=== PATIENT | male | born 1945 | race Caucasian/White ===

== ENCOUNTER 2017-10-31 03:55 | Emergency (ER) | payer MEDICARE, MEDICAID ==
[2017-10-31 03:55] VITALS: BMI 32.2
[2017-10-31 04:36] VITALS: RESP 18; O2SAT 97
[2017-10-31] MEDS ORDERED: Sodium Chloride 0.9% 1,000 ML IV SCH (05:00)
--- NOTE | 2017-10-31 05:21 | ED PDOC ---
Arrival/HPI - General Chief Complaint: Flu-like Symptoms Time Seen by Provider: 10/31/17 04:53 Historian: Patient, Family - History of Present Illness Narrative History of Present Illness (Text): 10/31/17 05:11 72 year male, whose past medical history includes hypertension and diabetes, presents to the emergency department complaining of flu-like symptoms including fever, cough, ear pain, and sore throat that began 4 days ago. As per son, patient was seen by PMD 2 days ago given medication and no relief. Patient denies any chills, chest pain, shortness of breath, nausea, vomiting, diarrhea, urinary symptoms, back pain, neck pain, headache, dizziness, or any other complaints. PMD: Dr. Arellano Time/Duration: Other (4 days) Symptom Onset: Gradual Symptom Course: Unchanged Activities at Onset: Light Context: Home Past Medical History - Provider Review Nursing Documentation Reviewed: Yes - Infectious Disease Hx of Infectious Diseases: None - Tetanus Immunization Tetanus Immunization: Unknown - Cardiac Hx Pacemaker: No - Pulmonary Hx Respiratory Disorders: No - Neurological Hx Paralysis: No - HEENT Hx Cataracts: Yes (Cataract sx) - Renal Hx Renal Disorder: No - Endocrine/Metabolic Hx Diabetes Mellitus Type 2: Yes - Hematological/Oncological Hx Blood Transfusions: No Hx Blood Transfusion Reaction: No - Integumentary Hx Dermatological Disorder: No - Musculoskeletal/Rheumatological Hx Musculoskeletal Disorders: No - Gastrointestinal Hx Gastrointestinal Disorders: No - Genitourinary/Gynecological Hx Genitourinary Disorders: No - Psychiatric Hx Emotional Abuse: No Hx Physical Abuse: No Hx Substance Use: No - Past Surgical History Past Surgical History: Non-Contributing - Anesthesia Hx Anesthesia Reactions: No Hx Malignant Hyperthermia: No - Suicidal Assessment Feels Threatened In Home Enviroment: No Family/Social History - Physician Review Nursing Documentation Reviewed: Yes Family/Social History: No Known Family HX Smoking Status: Never Smoked Hx Alcohol Use: No Hx Substance Use: No Hx Substance Use Treatment: No Allergies/Home Meds Allergies/Adverse Reactions: Allergies No Known Allergies Allergy (Verified 11/05/15 12:44) Home Medications: Home Meds Medication Instructions Recorded Confirmed Enalapril Maleate 10 mg PO DAILY 08/29/14 10/31/17 Lovastatin 40 mg PO QPM 08/29/14 10/31/17 Metformin HCl 1,000 mg PO BID 08/29/14 10/31/17 Linagliptin [Tradjenta] 5 mg PO QAM 11/05/15 10/31/17 Tamsulosin [Flomax] 0.4 mg PO QPM 11/05/15 10/31/17 Metoprolol Succinate XL 25 mg PO DAILY 11/06/15 10/31/17 Review of Systems - Physician Review All systems were reviewed & negative as marked: Yes - Review of Systems Constitutional: Fevers. absent: Other (Chills) ENT: Sore Throat, Other (ear pain) Respiratory: Cough. absent: SOB Cardiovascular: absent: Chest Pain Gastrointestinal: absent: Diarrhea, Nausea, Vomiting Genitourinary Male: absent: Dysuria, Frequency, Hematuria Musculoskeletal: absent: Back Pain, Neck Pain Neurological: absent: Headache, Dizziness Physical Exam Vital Signs Reviewed: Yes Vital Signs Temp Pulse Resp BP Pulse Ox 10/31/17 06:09 99.9 F H 75 18 124/64 97 10/31/17 05:23 101.8 F H 10/31/17 04:35 101.8 F H 77 18 123/69 97 Temperature: Febrile Blood Pressure: Normal Pulse: Regular Respiratory Rate: Normal Appearance: Positive for: Well-Appearing, Non-Toxic, Comfortable Pain Distress: None Mental Status: Positive for: Alert and Oriented X 3 - Systems Exam Head: Present: Atraumatic, Normocephalic Pupils: Present: PERRL Extroacular Muscles: Present: EOMI Conjunctiva: Present: Normal Ears: Present: NORMAL TM Mouth: Present: Moist Mucous Membranes Pharnyx: Present: ERYTHEMA. No: EXUDATE, TONSILS ENLARGED, Peritonsilar Swelling, Uvular Deviation, Muffled/Hoarse Voice Neck: Present: Normal Range of Motion, Other. No: Meningeal Signs (Neck Supple) Respiratory/Chest: Present: Clear to Auscultation, Good Air Exchange. No: Respiratory Distress, Accessory Muscle Use Cardiovascular: Present: Regular Rate and Rhythm, Normal S1, S2. No: Murmurs Abdomen: Present: Normal Bowel Sounds. No: Tenderness, Distention, Peritoneal Signs Back: Present: Normal Inspection Upper Extremity: Present: Normal Inspection. No: Cyanosis, Edema Lower Extremity: Present: Normal Inspection. No: Edema Neurological: Present: GCS=15, CN II-XII Intact, Speech Normal. No: Other (No focal neurological deficits) Skin: Present: Warm, Dry, Normal Color. No: Rashes Psychiatric: Present: Alert, Oriented x 3, Normal Insight, Normal Concentration Medical Decision Making ED Course and Treatment: 10/31/17 05:12 Impression: 72 year old male presents complaining of flu-like symptoms including cough, fever, ear pain, and sore throat that began 4 days ago. Plan: -- VBG -- Labs -- IV Fluids, Tylenol -- Urine Culture, Blood Culture -- Urinalysis -- Reassess and disposition Progress Notes: 10/31/17 05:55 Patient Labs shows Influenza B positive. CXR Impression: As read by me, no acute processes. 10/31/17 06:15 Patient states he feels fine and that he prefers medication and to be released to go home. Patient's family is present and prefer patient goes home as well. Patient will be discharged on medication prescribed. Patient in agreement with plan to be discharged home. Patient is stable for discharge. Patient was instructed to follow up with physician or return if symptoms worsen or new concerning symptoms arise. - Lab Interpretations Lab Results: 10/31/17 05:00 10/31/17 05:00 Lab Results 10/31/17 05:10: Influenza Typ A,B (EIA) Pos for influenza b H 10/31/17 05:00: pO2 26 L, VBG pH 7.41, VBG pCO2 48.0, VBG HCO3 30.4 H, VBG Total CO2 31.9 H, VBG O2 Sat (Calc) 59.3, VBG Base Excess 4.8 H, VBG Potassium 4.4, Sodium 135.0, Chloride 100.0, Glucose 252 H, Lactate 1.1, FiO2 21.0, Venous Blood Potassium 4.4 10/31/17 05:00: WBC 8.3 D, RBC 4.79, Hgb 14.4, Hct 42.6, MCV 88.9, MCH 30.1, MCHC 33.8, RDW 13.1, Plt Count 106 L, MPV 11.2 H 10/31/17 05:00: Sodium 139, Chloride 99, Potassium 4.3, Carbon Dioxide 27, Anion Gap 18, BUN 25 H, Creatinine 1.4, Est GFR ( Amer) > 60, Est GFR ( Non-Af Amer) 50, Random Glucose 238 H, Calcium 9.0, Total Bilirubin 0.7, AST 21 , ALT 29, Alkaline Phosphatase 38, Total Protein 7.7, Albumin 4.3, Globulin 3.4 , Albumin/Globulin Ratio 1.3 I have reviewed the lab results: Yes - RAD Interpretation Radiology Orders: 10/31/17 05:44 CHEST PORTABLE [RAD] Stat - Medication Orders Current Medication Orders: Sodium Chloride (Sodium Chloride 0.9%) 1,000 mls @ 100 mls/hr IV .Q10H SOCORRO Last Admin: 10/31/17 05:23 Dose: 100 mls/hr eMAR Start Stop Document 10/31/17 05:23 AD (Rec: 10/31/17 05:23 AD [id number]) Intravenous Solution Start Date 10/31/17 Start Time 05:23 Discontinued Medications Acetaminophen (Tylenol 325mg Tab) 650 mg PO STAT STA Stop: 10/31/17 04:56 Last Admin: 10/31/17 05:23 Dose: 650 mg MAR Pain/Vitals Document 10/31/17 05:23 AD (Rec: 10/31/17 05:23 AD [id number]) Location Pain Location Body Site Generalized Pain Behavior Facial Grimacing Vitals Temperature (97.6 F-99.6 F) 101.8 F Temperature Source Oral Oseltamivir Phosphate (Tamiflu Cap) 75 mg PO ONCE ONE PRN Reason: Protocol Stop: 10/31/17 06:02 Disposition/Present on Arrival - Present on Arrival Any Indicators Present on Arrival: No History of DVT/PE: No History of Uncontrolled Diabetes: Yes Urinary Catheter: No History of Decub. Ulcer: No History Surgical Site Infection Following: None - Disposition Have Diagnosis and Disposition been Completed?: Yes Diagnosis: Influenza, Pharyngitis Disposition: HOME/ ROUTINE Disposition Time: 06:11 Patient Plan: Discharge Patient Problems: Current Active Problems Problem Status Onset Influenza Acute Pharyngitis Acute Condition: GOOD Discharge Instructions (ExitCare): Flu, Adult (DC) Additional Instructions: Drink plenty of liquids/take meds as prescribed/follow up with your doctor this week/any worsening symptoms return to the emergency room Prescriptions: Oseltamivir [Tamiflu] 75 mg PO BID #10 cap Azithromycin [Z-Guido] 250 mg PO DAILY #6 tab Referrals: El Kent, [Primary Care Provider] - Follow up with primary Forms: [employer] (Welsh)
[2017-10-31 05:31] LABS: VENOUS BLOOD GAS BASE EXCESS 4.8 mmol/L (0.0-2.0); VENOUS BLOOD GAS PO2 26 mm/Hg (30-55); VENOUS BLOOD PH 7.41 (7.32-7.43)
[2017-10-31 05:32] LABS: HEMOGLOBIN 14.4 g/dL (14.0-18.0); MEAN CELL VOLUME 88.9 fl (80.0-105.0); MEAN CORPUSCULAR HEMOGLOBIN 30.1 pg (25.0-35.0); MEAN CORPUSCULAR HGB CONC 33.8 g/dl (31.0-37.0); MEAN PLATELET VOLUME 11.2 fl (7.0-11.0); RBC 4.79 10^6/uL (3.5-6.1); RED CELL DISTRIBUTION WIDTH 13.1 % (11.5-14.5); WHITE BLOOD COUNT 8.3 10^3/ul (4.5-11.0)
[2017-10-31 05:41] LABS: ALB/GLOB RATIO 1.3 (1.1-1.8); ALBUMIN 4.3 g/dL (3.0-4.8); ALT/SGPT 29 U/L (7-56); AST/SGOT 21 U/L (17-59); BLOOD UREA NITROGEN 25 mg/dL (7-21); GFR AFRICAN-AMERICAN > 60; GFR NON-AFRICAN AMERICAN 50
[2017-10-31 06:10] VITALS: BP 124/64; PULSE 75; TEMP 99.9
[2017-10-31 06:14] LABS: URINE BILIRUBIN NEGATIVE (NEGATIVE); URINE BLOOD SMALL (NEGATIVE); URINE GLUCOSE (UA) 100 mg/dL (NEGATIVE); URINE LEUKOCYTE ESTERASE NEGATIVE Leu/uL (NEGATIVE); URINE NITRATE NEGATIVE (NEGATIVE); URINE PROTEIN TRACE mg/dL (<30 mg/dL); URINE UROBILINOGEN 0.2 E.U./dL (<1 E.U./dL)
[2017-10-31 06:31] LABS: URINE COLOR YELLOW (YELLOW)
[2017-10-31 06:32] LABS: URINE APPEARANCE SL CLOUDY (CLEAR)
[2017-10-31 06:33] LABS: URINE EPITHELIAL CELLS 0 - 2 /hpf (0-5); URINE WBC 0 - 2 /hpf (0-6)
[2017-10-31 06:34] LABS: URINE BACTERIA FEW (NEG)
--- NOTE | 2017-10-31 09:56 | RAD ---
HISTORY: fever COMPARISON: Comparison chest 10/30/2013 FINDINGS: LUNGS: Mild bibasilar atelectasis or scarring PLEURA: No significant pleural effusion identified, no pneumothorax apparent. CARDIOVASCULAR: Cardiomegaly. Aorta is slightly ectatic and uncoiled. OSSEOUS STRUCTURES: Degenerative osteoarthritis right shoulder girdle VISUALIZED UPPER ABDOMEN: Normal. OTHER FINDINGS: None. IMPRESSION: Minor bibasilar atelectasis or scarring
== END 2017-10-31 06:25 | disposition home or self-care (01) ==
LOC: ED 03:55
DX: J11.1 Influenza due to unidentified influenza virus with other respiratory manifestations (principal); E11.9 Type 2 diabetes mellitus without complications
CPT/HCPCS: 71045; 80053; 81001; 82803; 85027; 87040; 87086; 87804; 99284; J7040

== ENCOUNTER 2018-10-10 10:31 | Emergency (ER) | payer MEDICARE, MEDICAID ==
[2018-10-10 10:32] VITALS: BMI 32.2
[2018-10-10 10:55] VITALS: RESP 18; TEMP 97.5
--- NOTE | 2018-10-10 11:20 | ED PDOC ---
Arrival/HPI - General Chief Complaint: Shortness Of Breath - History of Present Illness Narrative History of Present Illness (Text): 10/10/18 11:17 73 y/o M w/ h/o HTN, gastroparesis, HLD presenting to the Emergency Room with complaint of shortness of breath. The patient states he's been experiencing dyspnea and non-radiating midsternal chest tightness ongoing for the last 10 d ays. The patient denies any recent travel history, fevers, triggers or alleviators, but attributes his symptoms to a "blockage" in his heart. The patient denies taking any medication for his pain, but reports medication adherence. He denies seeing any other physicians for his symptoms, thinking it w ould resolve on their own. He denies taking any medication for his symptoms. Of note, the patient had an echo performed by Dr. Weathers(cardiology) on 07/21/2018 where LV function was patent, EF was intact and no wall motion abnormalities were detected at that time. PCP: Dr. Arellano Time/Duration: > week (1), 1 week (10 days) Symptom Onset: Gradual Symptom Course: Unchanged Quality: Tightness Severity Level: 6 Activities at Onset: Rest Context: Exertion, Home Past Medical History - Provider Review Nursing Documentation Reviewed: Yes - Travel History Have you recently traveled outside [place] w/in the past 3 mons?: No - Infectious Disease Hx of Infectious Diseases: None - Tetanus Immunization Tetanus Immunization: Unknown - Cardiac Hx Pacemaker: No - Pulmonary Hx Respiratory Disorders: No - Neurological Hx Paralysis: No - HEENT Hx Cataracts: Yes (Cataract sx) - Renal Hx Renal Disorder: No - Endocrine/Metabolic Hx Diabetes Mellitus Type 2: Yes - Hematological/Oncological Hx Blood Transfusions: No Hx Blood Transfusion Reaction: No - Integumentary Hx Dermatological Disorder: No - Musculoskeletal/Rheumatological Hx Musculoskeletal Disorders: No - Gastrointestinal Hx Gastrointestinal Disorders: No - Genitourinary/Gynecological Hx Genitourinary Disorders: No - Psychiatric Hx Emotional Abuse: No Hx Physical Abuse: No Hx Substance Use: No - Past Surgical History Past Surgical History: Non-Contributing - Anesthesia Hx Anesthesia: Yes Hx Anesthesia Reactions: No Hx Malignant Hyperthermia: No - Suicidal Assessment Feels Threatened In Home Enviroment: No Family/Social History - Physician Review Nursing Documentation Reviewed: Yes Family/Social History: Unknown Family HX Smoking Status: Never Smoked Hx Alcohol Use: No Hx Substance Use: No Hx Substance Use Treatment: No Allergies/Home Meds Allergies/Adverse Reactions: Allergies No Known Allergies Allergy (Verified 11/05/15 12:44) Home Medications: Home Meds Medication Instructions Recorded Confirmed RX: Enalapril Maleate 10 mg PO DAILY 08/29/14 10/31/17 RX: Lovastatin 40 mg PO QPM 08/29/14 10/31/17 RX: Metformin HCl 1,000 mg PO BID 08/29/14 10/31/17 Linagliptin [Tradjenta] 5 mg PO QAM 11/05/15 10/31/17 Tamsulosin [Flomax] 0.4 mg PO QPM 11/05/15 10/31/17 Metoprolol Succinate XL 25 mg PO DAILY 11/06/15 10/31/17 Review of Systems - Physician Review All systems were reviewed & negative as marked: Yes - Review of Systems Respiratory: SOB. absent: Cough, Sputum, Wheezing Cardiovascular: Chest Pain, Edema, [facility] Physical Exam Vital Signs Reviewed: Yes Vital Signs Temp Pulse Resp BP Pulse Ox 10/10/18 10:55 97.5 F L 65 18 131/71 96 Temperature: Afebrile Blood Pressure: Normal Pulse: Regular Respiratory Rate: Normal Appearance: Positive for: Well-Appearing, Non-Toxic, Comfortable Mental Status: Positive for: Alert and Oriented X 3 - Systems Exam Head: Present: Atraumatic, Normocephalic Pupils: Present: PERRL Extroacular Muscles: Present: EOMI Conjunctiva: Present: Normal Mouth: Present: Moist Mucous Membranes Neck: Present: Normal Range of Motion Respiratory/Chest: Present: Clear to Auscultation, Good Air Exchange. No: Respiratory Distress Cardiovascular: Present: Regular Rate and Rhythm, Normal S1, S2. No: Murmurs Abdomen: Present: Distention, Normal Bowel Sounds. No: Tenderness, Peritoneal Signs Upper Extremity: Present: Normal Inspection, Capillary Refill < 2s. No: Cyanosis, Edema Lower Extremity: Present: Edema (+1 pitting edema), Capillary Refill < 2 s Neurological: Present: GCS=15 Skin: Present: Warm, Dry, Normal Color. No: Rashes Psychiatric: Present: Alert, Oriented x 3, Normal Insight, Normal Concentration Medical Decision Making ED Course and Treatment: 10/10/18 11:21 Impression 73 y/o M w/ h/o HTN and HLD presenting with shortness of breath ongoing for the last 10 days Differential Diagnoses Include But Are Not Limited To: --ACS --Bronchitis --PNA --CHF --Arrythmia Plan --Labs --EKG --CXR --IVF --Toradol --Solumedrol --Reassess & disposition Progress Notes 10/10/18 11:50 CXR shows fibrosis near R hilar region, otherwise no focal infiltrates. Labs pending. 10/10/18 12:55 Labs reviewed with anemia of 13 and leukopenia of 3.8 noted. BNP, troponin and D-dimer all WNL. 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 He denies any current symptoms at this time. 10/10/18 13:08 Shared decision making with patient and family who does not have a probable acute cause for his symptoms. Interrogation of patient would reveal he has seen a building cleaning supervisor, but will follow up with building cleaning supervisor recommended by me. He demonstrate understanding and will follow up. He is stable for discharge. - Lab Interpretations Lab Results: 10/10/18 11:28 10/10/18 11:28 Lab Results 10/10/18 11:35: pO2 32, VBG pH 7.37, VBG pCO2 56.0, VBG HCO3 32.4 H, VBG Total CO2 34.1 H, VBG O2 Sat (Calc) 65.4 H, VBG Base Excess 5.5 H, VBG Potassium 4.4, Glucose 112 H, Lactate 1.5, FiO2 21.0, Sodium 137.0, Chloride 101.0, Venous Blood Potassium 4.4 10/10/18 11:28: Sodium 137, Potassium 4.6, Chloride 100, Carbon Dioxide 30, Anion Gap 12, BUN 26 H, Creatinine 1.2, Est GFR ( Amer) > 60, Est GFR (Non-Af Amer) 59, Random Glucose 112 H, Calcium 9.7, Magnesium 1.7, Total Bilirubin 0.5, AST 22, ALT 29, Alkaline Phosphatase 55, Troponin I < 0.01 D, NT-Pro-B Natriuret Pep 99.9, Total Protein 7.6, Albumin 4.3, Globulin 3.3, Albumin/Globulin Ratio 1.3 10/10/18 11:28: PT 11.5, INR 1.02, APTT 35.4, D-Dimer, Quantitative < 200 10/10/18 11:28: WBC 3.8 L, RBC 4.68, Hgb 13.9 L, Hct 41.8 L, MCV 89.3, MCH 29.7, MCHC 33.3, RDW 13.2, Plt Count 139, MPV 11.1 H, Neut % (Auto) 43.5 L, Lymph % (Auto) 44.0 H, Rock % (Auto) 10.1 H, Eos % (Auto) 2.1, Baso % (Auto) 0.3, Lymph # (Auto) 1.7, Rock # (Auto) 0.4, Eos # (Auto) 0.1, Baso # (Auto) 0.01, Absolute Neuts (auto) 1.64 I have reviewed the lab results: Yes - RAD Interpretation Radiology Orders: 10/10/18 11:07 CHEST PORTABLE [RAD] Stat - Medication Orders Current Medication Orders: 10/10/18 21:29 Discontinued Medications Ketorolac Tromethamine (Toradol) 30 mg IVP STAT STA Stop: 10/10/18 11:56 Last Admin: 10/10/18 12:14 Dose: 30 mg MAR Pain Assessment Document 10/10/18 12:14 GMD (Rec: 10/10/18 12:14 [facility] Pain Reassessment Is this a pain reassessment? No IVP Administration Document 10/10/18 12:14 GMD (Rec: 10/10/18 12:14 [id number] Charges for Administration # of IVP Administrations 1 Methylprednisolone (Solu-Medrol) 125 mg IVP STAT STA Stop: 10/10/18 13:09 Last Admin: 10/10/18 13:27 Dose: 125 mg IVP Administration Document 10/10/18 13:27 GMD (Rec: 10/10/18 13:27 [id number]) Charges for Administration # of IVP Administrations 1 Disposition/Present on Arrival - Present on Arrival Any Indicators Present on Arrival: Yes History of DVT/PE: No History of Uncontrolled Diabetes: Yes Urinary Catheter: No History of Decub. Ulcer: No History Surgical Site Infection Following: None - Disposition Have Diagnosis and Disposition been Completed?: Yes Diagnosis: Dyspnea, Pulmonary fibrosis Disposition: HOME/ ROUTINE Disposition Time: 13:12 Patient Plan: Discharge Condition: STABLE Discharge Instructions (ExitCare): Shortness of Breath (Dyspnea), Idiopathic Pulmonary Fibrosis (DC) Print Language: YI Additional Instructions: Please follow up with Dr. Vail (building cleaning supervisor) when you are able to . Please take medication as prescribed. Prescriptions: Methylprednisolone [Medrol Dose Pack (21 tabs)] 4 mg PO DAILY #21 mg Referrals: Matilda Arellano MD [Primary Care Provider] - Follow up with primary Fátima Vail MD [Staff Provider] - Follow up with primary Forms: [employer] (Tajik)
--- NOTE | 2018-10-10 11:42 | RAD ---
Date of service: 10/10/2018 HISTORY: shortness of breath COMPARISON: Portable chest 10/31/2017. FINDINGS: LUNGS: No acute pulmonary disease. Limited fibrosis right perihilar region. PLEURA: No significant pleural effusion identified, no pneumothorax apparent. CARDIOVASCULAR: No aortic atherosclerotic calcification present. Normal cardiac size. No pulmonary vascular congestion. OSSEOUS STRUCTURES: No significant abnormalities. VISUALIZED UPPER ABDOMEN: Normal. OTHER FINDINGS: None. IMPRESSION: No acute its cardiopulmonary disease appreciable. Stable limited linear fibrosis right perihilar region again evident.
[2018-10-10 11:47] LABS: VENOUS BLOOD GAS BASE EXCESS 5.5 mmol/L (0.0-2.0); VENOUS BLOOD GAS PO2 32 mm/Hg (30-55); VENOUS BLOOD PH 7.37 (7.32-7.43)
[2018-10-10 12:26] LABS: BASO # 0.01 K/mm3 (0.0-2.0); BASO % 0.3 % (0.0-3.0); EOS # 0.1 (0.0-0.7); EOS % 2.1 % (1.5-5.0); HEMOGLOBIN 13.9 g/dL (14.0-18.0); LYMPH # 1.7 (1.2-3.4); MEAN CELL VOLUME 89.3 fl (80.0-105.0); MEAN CORPUSCULAR HEMOGLOBIN 29.7 pg (25.0-35.0); MEAN CORPUSCULAR HGB CONC 33.3 g/dl (31.0-37.0); MEAN PLATELET VOLUME 11.1 fl (7.0-11.0); MONO # 0.4 (0.1-0.6); MONO % 10.1 % (1.0-6.0); RBC 4.68 10^6/uL (3.5-6.1); RED CELL DISTRIBUTION WIDTH 13.2 % (11.5-14.5); WHITE BLOOD COUNT 3.8 10^3/uL (4.5-11.0)
[2018-10-10 12:36] LABS: ALB/GLOB RATIO 1.3 (1.1-1.8); ALBUMIN 4.3 g/dL (3.0-4.8); ALT/SGPT 29 U/L (7-56); AST/SGOT 22 U/L (17-59); BLOOD UREA NITROGEN 26 mg/dL (7-21); CALCIUM 9.7 mg/dL (8.4-10.5); GFR NON-AFRICAN AMERICAN 59; INR 1.02; PARTIAL THROMBOPLASTIN TIME 35.4 Seconds (26.9-38.3); PROTHROMBIN TIME 11.5 SECONDS (9.4-12.5)
[2018-10-10 12:49] LABS: D DIMER < 200 ng/mlDDU (0-243)
[2018-10-10 12:50] LABS: B-TYPE NATRIURETIC PEPTIDE 99.9 pg/mL (0-450); TROPONIN I < 0.01 ng/mL
[2018-10-10 13:33] VITALS: BP 146/73; PULSE 56; O2SAT 100
--- NOTE | 2018-10-11 11:17 | CARD ---
APPROVED REPORT Date of service: 10/10/2018 EKG Measurement Heart Ocys50YSTE ID [id number] <Conclusion> Poor data quality, interpretation may be adversely affected Normal sinus rhythm Inferior infarct, age undetermined Abnormal ECG
== END 2018-10-10 13:38 | disposition home or self-care (01) ==
LOC: ED 10:31
DX: J84.10 Pulmonary fibrosis, unspecified (principal); R06.00 Dyspnea, unspecified; E78.5 Hyperlipidemia, unspecified; E11.43 Type 2 diabetes mellitus with diabetic autonomic (poly)neuropathy; K31.84 Gastroparesis; I10 Essential (primary) hypertension
CPT/HCPCS: 71045; 80053; 82803; 83735; 83880; 84484; 85025; 85378; 85610; 85730; 87040; 93005; 96374; 96375; 99285; J1885; J2930

== ENCOUNTER 2018-11-03 09:45 | Outpatient (CLI) | payer MEDICARE, MEDICAID | END 2018-11-03 09:46 | disposition home or self-care (01) | LOC: RAD 09:45 ==